=== PATIENT | male | born 1985 | race Two or more races ===

== ENCOUNTER 2017-10-25 11:46 | Emergency (ER) | payer SELFPAY ==
[~2017-10-25] VITALS: Ht 177.8 cm; Wt 138.0 kg
[2017-10-25] MEDS ORDERED: KETOROLAC 60MG/2ML VIAL IM ONE (13:00)
[2017-10-25 13:10] VITALS: BP 135/69
== END 2017-10-25 14:47 | disposition home or self-care (01) ==
LOC: ER 14:03
DX: M54.32 Sciatica, left side (principal); M54.5 Low back pain; F12.10 Cannabis abuse, uncomplicated
CPT/HCPCS: 96372; 99283; J1885

== ENCOUNTER 2022-08-09 00:41 | Emergency (ER) | payer MEDICAID ==
[~2022-08-09] VITALS: Ht 180.3 cm; Wt 164.4 kg
[2022-08-09 00:55] VITALS: BP 136/70
[2022-08-09] MEDS ORDERED: SILVER SULFADIAZINE 1% CREAM 50GM TOP SCH (02:45)
[2022-08-09] MEDS ORDERED: SILV20CR13 TP (02:45)
== END 2022-08-09 03:05 | disposition home or self-care (01) ==
LOC: ER 00:41
DX: T24.202A Burn of second degree of unspecified site of left lower limb, except ankle and foot, initial encounter (principal); T31.0 Burns involving less than 10% of body surface; F12.10 Cannabis abuse, uncomplicated; Z91.013 Allergy to seafood; X10.2XXA Contact with fats and cooking oils, initial encounter; Y93.89 Activity, other specified; Y92.018 Other place in single-family (private) house as the place of occurrence of the external cause
CPT/HCPCS: 16000; 99283

== ENCOUNTER 2024-02-15 23:19 | Emergency (ER) | payer MEDICAID ==
[~2024-02-15] VITALS: Ht 177.8 cm; Wt 141.0 kg
[~2024-02-15 23:19] MED LIST: SILV20CR13 TP
[2024-02-15 23:31] VITALS: O2SAT 96
[2024-02-16] MEDS: KETOROLAC 15MG/ML VIAL IM ONE (00:07)
[2024-02-16 01:06] VITALS: BP 144/78; PULSE 92; RESP 22; TEMP 98.5
== END 2024-02-16 00:44 | disposition home or self-care (01) ==
LOC: ER 23:30
DX: M79.672 Pain in left foot (principal); F12.90 Cannabis use, unspecified, uncomplicated; Z91.013 Allergy to seafood
CPT/HCPCS: 73630; 99283; 96372; J1885; Z7610